=== PATIENT | male | born 1975 | race Hispanic/Latino ===

== ENCOUNTER 2018-09-24 20:47 | Emergency (ER) | payer MEDICAID, OTHER ==
[2018-09-24] MEDS ORDERED: SODIUM CHLORIDE 0.9% 1000ML 1,000 ML IV ONE (22:02)
[2018-09-24] MEDS ORDERED: LORAZEPAM 2 MG/ML 1 ML VIAL ONE (22:02)
[2018-09-24 22:03] LABS: BASOPHILS % (AUTO) 1.1 % (0.0-5.0); EOSINOPHILS % (AUTO) 1.6 % (0.0-8.0); HEMATOCRIT 42.8 % (42-54); MEAN CORPUSCULAR HEMOGLOBIN 30.2 pg (27.0-33.0); MEAN CORPUSCULAR HGB CONC 33.6 g/dL (32.0-36.0); MEAN CORPUSCULAR VOLUME 89.7 fL (79-99); MONOCYTES % (AUTO) 9.1 % (3.0-13.0); NEUTROPHILS % (AUTO) 50.2 % (40.0-77.0); NUCLEATED RED BLOOD CELLS 0.1 % (0.0-0.19); PLATELET COUNT (AUTO) 232 K/uL (130-400); RED BLOOD CELL COUNT(AUTO) 4.77 MIL/uL (4.50-6.20); RED CELL DISTRIBUTION WIDTH 12.6 % (11.0-15.5); WHITE BLOOD COUNT (AUTO) 11.9 K/uL (4.8-10.8)
[2018-09-24 22:08] LABS: CREATININE 1.2 mg/dL (0.5-1.5); POTASSIUM 3.2 mmol/L (3.5-5.1)
[2018-09-24 22:13] LABS: ALBUMIN 4.2 g/dL (3.5-5.0); BILIRUBIN,TOTAL 0.6 mg/dL (0.2-1.0)
[2018-09-24] MEDS ORDERED: IOHEXOL-350 75 ML VIAL IV ONE (22:23)
[2018-09-24] MEDS ORDERED: POTASSIUM BICARB/CIT AC 25 MEQ TABLET.EFF ONE (23:42)
[2018-09-25] MEDS ORDERED: CEFTRIAXONE SODIUM 1 GM ONE (00:13)
[2018-09-25] MEDS ORDERED: DEXAMETHASONE SOD PHOSPHATE 10MG/ML 1ML VIAL ONE (00:13)
== END 2018-09-25 00:55 | disposition home or self-care (01) ==
LOC: EDH 20:47
DX: J01.90 Acute sinusitis, unspecified (principal); J02.9 Acute pharyngitis, unspecified; I10 Essential (primary) hypertension; Z79.899 Other long term (current) drug therapy
CPT/HCPCS: 36415; 70491; 80053; 84484; 85025; 93005; 96372; 96374; 96375; 99285; J0696; J1100; J2060; J7030; Q9967

== ENCOUNTER 2020-07-27 08:47 | Emergency (ER) | payer SELFPAY ==
[2020-07-27] MEDS ORDERED: LABETALOL 20 MG/4 ML DISP.SYRIN IV ONE (09:25)
[2020-07-27] MEDS ORDERED: FAMOTIDINE/PF 20 MG/2 ML VIAL IV ONE (09:25)
[2020-07-27 09:36] LABS: BASOPHILS % (AUTO) 0.8 % (0.0-5.0); EOSINOPHILS % (AUTO) 2.9 % (0.0-8.0); HEMATOCRIT 45.5 % (42-54); LYMPHOCYTES % (AUTO) 40.9 % (21.0-51.0); MEAN CORPUSCULAR HEMOGLOBIN 31.5 pg (27.0-33.0); MEAN CORPUSCULAR HGB CONC 34.9 g/dL (32.0-36.0); MEAN CORPUSCULAR VOLUME 90.1 fL (79-99); MONOCYTES % (AUTO) 8.1 % (3.0-13.0); NEUTROPHILS % (AUTO) 46.5 % (40.0-77.0); PLATELET COUNT (AUTO) 224 K/uL (130-400); RED BLOOD CELL COUNT(AUTO) 5.05 MIL/uL (4.50-6.20); WHITE BLOOD COUNT (AUTO) 11.4 K/uL (4.8-10.8)
[2020-07-27 09:44] LABS: CREATININE 1.1 mg/dL (0.5-1.5); POTASSIUM 3.2 mmol/L (3.5-5.1)
[2020-07-27 09:48] LABS: BILIRUBIN,TOTAL 0.6 mg/dL (0.2-1.0); TOTAL PROTEIN, SERUM 7.7 g/dL (6.0-8.3)
[2020-07-27 09:59] LABS: B-TYPE NATRIURETIC PEPTIDE 9 pg/mL (0-100)
[2020-07-27] MEDS ORDERED: POTASSIUM CHLORIDE 20 MEQ ERTAB PO ONE (10:11)
[2020-07-27] MEDS ORDERED: SIMETHICONE 80 MG TAB.CHEW ONE (11:12)
[2020-07-27] MEDS ORDERED: MAG HYDROX/AL HYDROX/SIMETH ES 30 ML SUSP UDCUP ONE (11:19)
[2020-07-27] MEDS ORDERED: LIDOCAINE HCL 2% VISCOUS 15 ML UDCUP ONE (11:19)
== END 2020-07-27 12:08 | disposition home or self-care (01) ==
LOC: EDH 08:47
DX: R06.02 Shortness of breath (principal); R10.13 Epigastric pain; I10 Essential (primary) hypertension
CPT/HCPCS: 36415; 71045; 80053; 82550; 83880; 84484 ×2; 85025; 93005 ×2; 96374; 96375; 99285; J3490

== ENCOUNTER 2020-08-20 12:35 | Emergency (ER) | payer SELFPAY ==
[2020-08-20 12:59] LABS: BASOPHILS % (AUTO) 0.8 % (0.0-5.0); HEMATOCRIT 43.1 % (42-54); LYMPHOCYTES % (AUTO) 44.2 % (21.0-51.0); MEAN CORPUSCULAR HEMOGLOBIN 31.6 pg (27.0-33.0); MEAN CORPUSCULAR HGB CONC 35.7 g/dL (32.0-36.0); MEAN CORPUSCULAR VOLUME 88.3 fL (79-99); MONOCYTES % (AUTO) 6.6 % (3.0-13.0); PLATELET COUNT (AUTO) 265 K/uL (130-400); RED BLOOD CELL COUNT(AUTO) 4.88 MIL/uL (4.50-6.20); RED CELL DISTRIBUTION WIDTH 11.5 % (11.0-15.5); WHITE BLOOD COUNT (AUTO) 12.4 K/uL (4.8-10.8)
[2020-08-20 13:10] LABS: POTASSIUM 3.1 mmol/L (3.5-5.1)
[2020-08-20 13:12] LABS: INR 0.96 (0.85-1.15); PARTIAL THROMBOPLASTIN TIME 25.3 SEC (26.3-35.5); PROTHROMBIN TIME 10.4 SEC (9.6-11.6)
[2020-08-20 13:15] LABS: ALBUMIN 4.1 g/dL (3.5-5.0); BILIRUBIN,TOTAL 0.3 mg/dL (0.2-1.0); TOTAL PROTEIN, SERUM 7.6 g/dL (6.0-8.3)
[2020-08-20 13:29] LABS: B-TYPE NATRIURETIC PEPTIDE 8 pg/mL (0-100)
[2020-08-20] MEDS ORDERED: POTASSIUM CHLORIDE 20 MEQ ERTAB PO ONE (13:45)
[2020-08-20 13:47] LABS: APPEARANCE,URINE Clear (CLEAR); BILIRUBIN,URINE Negative (NEGATIVE); COLOR,URINE Yellow (YELLOW); GLUCOSE, URINE (UA) Negative (NEGATIVE); KETONES,URINE Negative (NEGATIVE); LEUKOCYTE ESTERASE ,URINE Negative (NEGATIVE); NITRATE,URINE Negative (NEGATIVE); OCCULT BLOOD,URINE Negative (NEGATIVE); PH,URINE 5.5 (5.0-8.0); PROTEIN,URINE Negative (NEGATIVE); UROBILINOGEN,URINE 0.2 mg/dL (0.2-1.0)
[2020-08-20 13:56] LABS: AMPHET/METH SCREEN,URINE NEGATIVE (NEGATIVE); BARBITURATE SCREEN, URINE NEGATIVE (NEGATIVE); BENZODIAZEPINES SCREEN,URINE NEGATIVE (NEGATIVE); CANNABINOID SCREEN,URINE NEGATIVE (NEGATIVE); COCAINE SCREEN,URINE NEGATIVE (NEGATIVE); OPIATE SCREEN,URINE NEGATIVE (NEGATIVE); PHENCYCLIDINE SCREEN,URINE NEGATIVE (NEGATIVE)
== END 2020-08-20 16:26 | disposition home or self-care (01) ==
LOC: EDH 12:35
DX: E87.6 Hypokalemia (principal); R06.00 Dyspnea, unspecified; Z20.828 Contact with and (suspected) exposure to other viral communicable diseases
CPT/HCPCS: 36415; 71045; 80053; 80305; 81003; 82550; 83880; 84484 ×2; 85025; 85378; 85610; 85730; 87426; 93005 ×2; 99285; U0003

== ENCOUNTER 2020-10-06 11:00 | Emergency (ER) | payer SELFPAY ==
[2020-10-06] MEDS ORDERED: DEXAMETHASONE SOD PHOSPHATE 10MG/ML 1ML VIAL ONE (11:14)
[2020-10-06] MEDS ORDERED: ALBUTEROL INHALER 90MCG/INH IH ONE (11:14)
[2020-10-06 11:50] LABS: BASOPHILS % (AUTO) 0.9 % (0.0-5.0); EOSINOPHILS % (AUTO) 3.9 % (0.0-8.0); HEMATOCRIT 42.7 % (42-54); LYMPHOCYTES % (AUTO) 22.9 % (21.0-51.0); MEAN CORPUSCULAR HEMOGLOBIN 30.8 pg (27.0-33.0); MEAN CORPUSCULAR HGB CONC 34.9 g/dL (32.0-36.0); MEAN CORPUSCULAR VOLUME 88.4 fL (79-99); MONOCYTES % (AUTO) 7.1 % (3.0-13.0); NEUTROPHILS % (AUTO) 64.9 % (40.0-77.0); PLATELET COUNT (AUTO) 260 K/uL (130-400); RED BLOOD CELL COUNT(AUTO) 4.83 MIL/uL (4.50-6.20); RED CELL DISTRIBUTION WIDTH 11.5 % (11.0-15.5); WHITE BLOOD COUNT (AUTO) 8.9 K/uL (4.8-10.8)
[2020-10-06 11:58] LABS: APPEARANCE,URINE Clear (CLEAR); BILIRUBIN,URINE Negative (NEGATIVE); COLOR,URINE Yellow (YELLOW); GLUCOSE, URINE (UA) Negative (NEGATIVE); KETONES,URINE Trace mg/dL (NEGATIVE); LEUKOCYTE ESTERASE ,URINE Negative (NEGATIVE); NITRATE,URINE Negative (NEGATIVE); OCCULT BLOOD,URINE Negative (NEGATIVE); PH,URINE 8.5 (5.0-8.0); PROTEIN,URINE Negative (NEGATIVE); UROBILINOGEN,URINE 0.2 mg/dL (0.2-1.0)
[2020-10-06 12:01] LABS: INR 0.99 (0.85-1.15); PARTIAL THROMBOPLASTIN TIME 28.2 SEC (26.3-35.5); PROTHROMBIN TIME 10.7 SEC (9.6-11.6)
[2020-10-06 12:07] LABS: ALBUMIN 4.1 g/dL (3.5-5.0); BILIRUBIN,TOTAL 0.8 mg/dL (0.2-1.0); CREATININE 1.1 mg/dL (0.5-1.5); POTASSIUM 3.8 mmol/L (3.5-5.1); TOTAL PROTEIN, SERUM 7.7 g/dL (6.0-8.3)
[2020-10-06 12:43] LABS: ABG BASE EXCESS 2.3 mmol/L (-2.0-3.0); ABG HCO3 25.2 mmol/L (21.0-28.0); ABG OXYGEN SATURATION 97.3 % (95.0-99.0); ABG PCO2 34 mmHg (35-48)
[2020-10-06 13:03] LABS: RBC,URINE 0-1 /HPF (0-1)
[2020-10-06 13:04] LABS: BACTERIA,URINE Few /HPF (None Seen); SQUAMOUS EPITHELIAL CELL,UR 0-2 /HPF (0-2); WBC,URINE 0-1 /HPF (0-1)
== END 2020-10-06 13:54 | disposition home or self-care (01) ==
LOC: EDH 11:00
DX: R05 Cough (principal); J41.1 Mucopurulent chronic bronchitis; I10 Essential (primary) hypertension
CPT/HCPCS: 36415; 36600; 71046; 80053; 81001; 82550; 82803; 84484; 85025; 85610; 85730; 93005; 96374; 99285; J1100

== ENCOUNTER 2021-01-24 12:18 | Emergency (ER) | payer SELFPAY ==
[2021-01-24] MEDS ORDERED: DEXAMETHASONE SOD PHOSPHATE 10MG/ML 1ML VIAL ONE (12:42)
[2021-01-24] MEDS ORDERED: FAMOTIDINE 20MG TAB 20 MG TAB ONE (12:43)
[2021-01-24] MEDS ORDERED: ASPIRIN 325 MG TABLET ONE (12:43)
[2021-01-24] MEDS ORDERED: DiphenhydrAMINE HCL 50 MG/ML VIAL ONE (12:43)
[2021-01-24] MEDS ORDERED: SODIUM CHLORIDE 0.9% 500ML 500 ML IV ONE (12:44)
[2021-01-24 12:45] LABS: BASOPHILS % (AUTO) 0.8 % (0.0-5.0); EOSINOPHILS % (AUTO) 3.1 % (0.0-8.0); HEMATOCRIT 44.6 % (42-54); LYMPHOCYTES % (AUTO) 39.5 % (21.0-51.0); MEAN CORPUSCULAR HEMOGLOBIN 30.1 pg (27.0-33.0); MEAN CORPUSCULAR HGB CONC 34.5 g/dL (32.0-36.0); MEAN CORPUSCULAR VOLUME 87.1 fL (79-99); MONOCYTES % (AUTO) 6.3 % (3.0-13.0); NEUTROPHILS % (AUTO) 49.7 % (40.0-77.0); PLATELET COUNT (AUTO) 250 K/uL (130-400); RED BLOOD CELL COUNT(AUTO) 5.12 MIL/uL (4.50-6.20); RED CELL DISTRIBUTION WIDTH 11.7 % (11.0-15.5); WHITE BLOOD COUNT (AUTO) 11.1 K/uL (4.8-10.8)
[2021-01-24 12:59] LABS: POTASSIUM 3.3 mmol/L (3.5-5.1)
[2021-01-24 13:02] LABS: INR 1.03 (0.85-1.15); PROTHROMBIN TIME 11.2 SEC (9.6-11.6)
[2021-01-24 13:04] LABS: PARTIAL THROMBOPLASTIN TIME 26.5 SEC (26.3-35.5)
[2021-01-24 13:06] LABS: ALBUMIN 4.3 g/dL (3.5-5.0); BILIRUBIN,TOTAL 0.9 mg/dL (0.2-1.0); TOTAL PROTEIN, SERUM 8.2 g/dL (6.0-8.3)
[2021-01-24 13:22] LABS: APPEARANCE,URINE Clear (CLEAR); BILIRUBIN,URINE Negative (NEGATIVE); COLOR,URINE Yellow (YELLOW); GLUCOSE, URINE (UA) Negative (NEGATIVE); KETONES,URINE Negative (NEGATIVE); LEUKOCYTE ESTERASE ,URINE Negative (NEGATIVE); NITRATE,URINE Negative (NEGATIVE); OCCULT BLOOD,URINE Negative (NEGATIVE); PROTEIN,URINE Negative (NEGATIVE); UROBILINOGEN,URINE 0.2 mg/dL (0.2-1.0)
[2021-01-24 13:29] LABS: B-TYPE NATRIURETIC PEPTIDE < 5 pg/mL (0-100)
[2021-01-24 13:30] LABS: AMPHET/METH SCREEN,URINE NEGATIVE (NEGATIVE); BARBITURATE SCREEN, URINE NEGATIVE (NEGATIVE); BENZODIAZEPINES SCREEN,URINE NEGATIVE (NEGATIVE); CANNABINOID SCREEN,URINE NEGATIVE (NEGATIVE); COCAINE SCREEN,URINE NEGATIVE (NEGATIVE); OPIATE SCREEN,URINE NEGATIVE (NEGATIVE); PHENCYCLIDINE SCREEN,URINE NEGATIVE (NEGATIVE)
== END 2021-01-24 15:17 | disposition home or self-care (01) ==
LOC: EDH 12:18
DX: F41.1 Generalized anxiety disorder (principal); I10 Essential (primary) hypertension; Z86.16 Personal history of COVID-19
CPT/HCPCS: 36415; 71045; 80053; 80305; 81003; 82550; 83605; 83880; 84484; 85025; 85610; 85730; 87040 ×2; 87880; 93005; 96361; 96374; 96375; 99285; J1100; J1200; J7040

== ENCOUNTER 2021-02-06 18:19 | Emergency (ER) | payer OTHER, SELFPAY ==
[2021-02-06] MEDS ORDERED: LIDOCAINE HCL 2% VISCOUS 15 ML UDCUP ONE (18:33)
[2021-02-06] MEDS ORDERED: MAG/ALUM/SIMETH 30 ML UDCUP ONE (18:33)
== END 2021-02-06 19:20 | disposition home or self-care (01) ==
LOC: EDH 18:19
DX: R13.10 Dysphagia, unspecified (principal); F41.1 Generalized anxiety disorder; I10 Essential (primary) hypertension; Z86.16 Personal history of COVID-19
CPT/HCPCS: 70360

== ENCOUNTER 2023-12-08 10:05 | Emergency (ER) | payer OTHER ==
[~2023-12-08] VITALS: Ht 182.9 cm; Wt 122.5 kg
[2023-12-08 10:11] VITALS: BP 165/108; PULSE 72; RESP 16; O2SAT 98
[2023-12-08] MEDS ORDERED: IBUPROFEN 800 MG TAB PO ONE (11:30)
[2023-12-08] MEDS ORDERED: CYCLOBENZAPRINE HCL 10 MG TABLET PO ONE (11:30)
[2023-12-08] MEDS ORDERED: CYCL10TA16 PO (12:47)
[2023-12-08] MEDS ORDERED: IBUP-2071 PO (12:47)
== END 2023-12-08 13:01 | disposition home or self-care (01) ==
LOC: EDH 10:05
DX: S16.1XXA Strain of muscle, fascia and tendon at neck level, initial encounter (principal); M25.561 Pain in right knee; M17.11 Unilateral primary osteoarthritis, right knee; K21.9 Gastro-esophageal reflux disease without esophagitis; I10 Essential (primary) hypertension; V89.2XXA Person injured in unspecified motor-vehicle accident, traffic, initial encounter; Y93.89 Activity, other specified; Y92.89 Other specified places as the place of occurrence of the external cause; Y99.8 Other external cause status
CPT/HCPCS: 72040; 73562

== ENCOUNTER 2024-11-09 07:32 | Emergency (ER) | payer SELFPAY ==
[~2024-11-09] VITALS: Ht 182.9 cm; Wt 127.0 kg
[~2024-11-09 07:32] MED LIST: CYCL10TA16 PO; IBUP-2071 PO
--- NOTE | 2024-11-09 07:48 | EKG ---
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
[2024-11-09 07:59] LABS: CREATININE 0.9 mg/dL (0.5-1.3); POTASSIUM 3.3 mmol/L (3.5-5.1)
[2024-11-09 08:12] LABS: BASOPHILS # (AUTO) 0.08 K/uL (0.00-0.20); BASOPHILS % (AUTO) 0.7 % (0.0-5.0); EOSINOPHILS # (AUTO) 0.02 K/uL (0.00-0.70); EOSINOPHILS % (AUTO) 0.2 % (0.0-8.0); HEMATOCRIT 44.1 % (42-54); IMMATURE GRANULOCYTE ABSOLUTE 0.05 K/uL (0-1); LYMPHOCYTES # (AUTO) 6.5 K/uL (1.0-4.8); LYMPHOCYTES % (AUTO) 52.8 % (21.0-51.0); MEAN CORPUSCULAR HEMOGLOBIN 30.9 pg (27.0-33.0); MEAN CORPUSCULAR HGB CONC 34.9 g/dL (32.0-36.0); MEAN CORPUSCULAR VOLUME 88.4 fL (79-99); MONOCYTES # (AUTO) 0.9 K/uL (0.1-1.0); MONOCYTES % (AUTO) 7.3 % (3.0-13.0); NEUTROPHILS # (AUTO) 4.7 K/uL (1.8-7.7); NEUTROPHILS % (AUTO) 38.6 % (40.0-77.0); PLATELET COUNT (AUTO) 281 K/uL (130-400); RED BLOOD CELL COUNT(AUTO) 4.99 MIL/uL (4.50-6.20); RED CELL DISTRIBUTION WIDTH 11.7 % (11.0-15.5); WHITE BLOOD COUNT (AUTO) 12.2 K/uL (4.8-10.8)
[2024-11-09] MEDS: FAMOTIDINE 20MG VIAL IV ONE (08:18)
[2024-11-09] MEDS: HYOSCYAMINE SULFATE 0.125 MG TAB.SUBL SL ONE (08:18)
[2024-11-09] MEDS: LORazepam 2 MG/ML 1 ML VIAL IVP ONE (08:18)
--- NOTE | 2024-11-09 08:23 | ERN ---
ED Note History of Present Illness Stated Complaint: SOB Chief Complaint: Shortness of Breath Time Seen by MD: 07:37 Dictation: This is a 49-year-old male with a past medical history of hypertension, anxiety, obesity who came to the ED with the complaints shortness of breath, belching since morning. He stated that he has started experiencing belching with heartburn, difficulty in breathing, anxiety since morning. He also noted having high blood pressure in the morning for which he took his home medication. He states that he drinks alcohol every day. Vitals blood pressure 190/110, pulse rate 116, respiratory rate 24. He denies headache, dizziness, nausea, vomiting, difficulty in swallowing, chest pain, palpitations, abdominal pain, constipation/diarrhea, difficulty in urination. Allergies: Coded Allergies: No Known Drug Allergies (Unverified Allergy, Unknown, 10/06/20) Home Meds Active Scripts Famotidine (Pepcid) 20 Mg Tablet, 1 TAB PO BID PRN for DYSPEPSIA for 15 Days, #30 TAB 0 Refills Prov:ROD ROCHA MD 11/09/24 Losartan Potassium (Losartan Potassium) 50 Mg Tablet, 1 TAB PO DAILY for 15 Days, #15 TAB 0 Refills Prov:ROD ROCHA MD 11/09/24 Ibuprofen (Ibuprofen) 800 Mg Tablet, 800 MG PO Q6HPRN PRN for PAIN, #20 TAB 0 Refills Prov:RADHA ZAZUETA [facility] 12/08/23 Cyclobenzaprine HCl (Flexeril) 10 Mg Tab, 10 MG PO TIDP PRN for PAIN, #12 TAB 0 Refills Prov:RADHA ZAZUETA [facility] 12/08/23 Discontinued Scripts Lorazepam (Ativan) 1 Mg Tablet, 1 TAB PO [id number] PRN for anxiety for 3 Days, #6 TAB 0 Refills Prov:ROD ROCHA MD 11/09/24 Famotidine (Pepcid) 20 Mg Tablet, 1 TAB PO BID PRN for DYSPEPSIA for 15 Days, #30 TAB 0 Refills Prov:ROD ROCHA MD 11/09/24 Past Medical History Past Medical History: Anxiety, Hypertension Surgical History: Unknown Surgical History Other: LEFT HIP Review of System Dictation CONSTITUTIONAL: No chills, no fever, no weakness, no diaphoresis, no malaise. HEAD/FACE: No signs of trauma. EENT: No eye pain, no blurred vision, no tearing, no double vision, no ear pain, no ear discharge, no nose pain, no nasal congestion, no throat pain, no throat swelling, no mouth pain. RESPIRATORY: No cough, orthopnea, shortness of breath no stridor, no wheezing. CARDIOVASCULAR: No chest pain, no edema, no palpitations, no syncope. GASTROINTESTINAL/ABDOMINAL: No abdominal pain, no constipation, no diarrhea, no nausea, no vomiting. GENITOURINARY: No abnormal discharge, no dysuria, no frequent urination, no hematuria. No complaints of pain in the genitals. MUSCULOSKELETAL: No back pain, no gout, no joint pain, no joint swelling, no muscle pain, no muscle stiffness, no neck pain. INTEGUMENTARY: No change in color, no change in hair/nails, no dryness, no lesion, no lumps, no rash. NEUROLOGICAL/PSYCH: Anxiety, not depressed, no emotional problem, no headache, no numbness, no pre-existing deficit, no history of seizures, no tremors, no weakness. HEMATOLOGIC/LYMPHATIC: Not anemic, no history of blood clots, no apparent bleeding, no bruising, glands not swollen. All Systems Negative, Except as Noted. Initial Vital Sign VS Vital Signs Date Time Temp Pulse Resp B/P (MAP) Pulse Ox O2 Delivery O2 Flow Rate FiO2 11/09/24 07:33 97.9 116 24 181/116 99 Room Air 11/09/24 07:48 0 21 Physical Exam Dictation Physical Exam Dictation VITAL SIGNS: Reviewed. GENERAL APPEARANCE: Alert, oriented x3, anxious, obese. HEAD AND FACE: Non-traumatic. EYES: PERRL, pink conjunctivas, eyelid no trauma, anterior chamber clear. EARS: Pinnas intact and no signs of trauma or erythema. Ear canals clear and no discharge. TMs no erythema. NOSE: No discharge, no bleeding. OROPHARYNX: Mouth normal, teeth no caries, tongue pink. Pharynx clear, no erythema. Tonsils no exudates, no abscesses noted. Mucous membrane moist. NECK: Supple, non-tender, no thyromegaly, no masses, no JVD, no bruits. BREAST: Deferred. CHEST: No tenderness, no crepitus, no paradoxical movement, no retractions. LUNGS: Clear, well-ventilated, symmetric, no rales, no wheezing, no rhonchi, no stridor, good breath sounds bilaterally. HEART: Tachycardia, regular rhythm, no murmur, no gallops. VASCULAR: No peripheral edema. ABDOMEN: Soft, positive bowel sounds, rigid nondistended, no guarding, nontender, no rebound, no masses, no Smith's sign, no hernias. RECTAL: Deferred. GENITAL: Deferred. NEUROLOGICAL: Normal speech, gross motor function intact, gross sensory function intact. MUSCULOSKELETAL: Neck nontender, full range of motion, back nontender, full ra nge of motion. EXTREMITIES: Nontender, full range of motion. SKIN: Color pink, dry, no turgor, no rash, no lacerations, no abrasions, no contusions. LYMPHATICS: Deferred. Results (Laboratory/Radiology) Laboratory/Radiology Laboratory Tests Test 11/09/24 07:41 11/09/24 08:07 11/09/24 08:20 White Blood Count 12.2 K/uL (4.8-10.8) H Red Blood Count 4.99 MIL/uL (4.50-6.20) Hemoglobin 15.4 g/dL (14.0-18.0) Hematocrit 44.1 % (42-54) Mean Corpuscular Volume 88.4 fL (79-99) Mean Corpuscular Hemoglobin 30.9 pg (27.0-33.0) Mean Corpuscular Hemoglobin Concent 34.9 g/dL (32.0-36.0) Red Cell Distribution Width 11.7 % (11.0-15.5) Platelet Count 281 K/uL (130-400) Mean Platelet Volume 11.5 fL (7.5-10.5) H Immature Granulocyte % (Auto) 0.4 % (0-1) Neutrophils (%) (Auto) 38.6 % (40.0-77.0) L Lymphocytes (%) (Auto) 52.8 % (21.0-51.0) H Monocytes (%) (Auto) 7.3 % (3.0-13.0) Eosinophils (%) (Auto) 0.2 % (0.0-8.0) Basophils (%) (Auto) 0.7 % (0.0-5.0) Neutrophils # (Auto) 4.7 K/uL (1.8-7.7) Lymphocytes # (Auto) 6.5 K/uL (1.0-4.8) H Monocytes # (Auto) 0.9 K/uL (0.1-1.0) Eosinophils # (Auto) 0.02 K/uL (0.00-0.70) Basophils # (Auto) 0.08 K/uL (0.00-0.20) Absolute Immature Granulocyte (auto 0.05 K/uL (0-1) Segmented Neutrophils % 38 % (40-70) L Band Neutrophils % 2 % (0-2) Lymphocytes % (Manual) 21 % (22-44) L Monocytes % (Manual) 4 % (2-9) Eosinophils % (Manual) 2 % (1-6) Basophils % (Manual) 1 % (0-2) Nucleated Red Blood Cells 0.0 % (0.0-0.19) Differential Comment MANUAL DIFFERENTIAL Reactive Lymphocytes 32 % (0-0) H White Cell Morphology Comment Platelet Morphology Comment ADEQUATE Red Blood Cell Morphology NORMAL Sodium Level 138 mmol/L (136-145) Potassium Level 3.3 mmol/L (3.5-5.1) L Chloride Level 103 mmol/L (101-111) Carbon Dioxide Level 28 mmol/L (21-32) Blood Urea Nitrogen 10 mg/dL (7-18) Creatinine 0.9 mg/dL (0.5-1.3) Glomerular Filtration Rate Calc 104 mL/min (>90) Random Glucose 143 mg/dL (70-105) H Total Calcium 8.5 mg/dL (8.5-10.1) Total Bilirubin 0.6 mg/dL (0.2-1.0) Direct Bilirubin 0.1 mg/dL (0.0-0.3) Aspartate Amino Transf (AST/SGOT) 33 U/L (10-37) Alanine Aminotransferase (ALT/SGPT) 60 U/L (12-78) Alkaline Phosphatase 131 U/L (50-136) Total Creatine Kinase 275 U/L (21-232) #H B-Type Natriuretic Peptide 12 pg/mL (0-100) Total Protein 7.9 g/dL (6.0-8.3) Albumin 3.8 g/dL (3.5-5.0) Lipase 73 U/L (16-77) Troponin I < 0.05 ng/mL (0.00-0.05) Urine Color LIGHT-YELLOW (YELLOW) Urine Appearance CLEAR (CLEAR) Urine pH 6.5 (5.0-8.0) Urine Specific [place] 1.014 (1.001-1.031) Urine Protein NEGATIVE mg/dL (NEGATIVE) Urine Glucose (UA) NEGATIVE mg/dL (NEGATIVE) Urine Ketones 5 mg/dL (NEGATIVE) H Urine Occult Blood NEGATIVE (NEGATIVE) Urine Nitrate NEGATIVE (NEGATIVE) Urine Bilirubin NEGATIVE mg/dL (NEGATIVE) Urine Urobilinogen 0.2 mg/dL (0.2-1.0) Urine Leukocyte Esterase NEGATIVE [place]/uL Urine RBC 0-1 /HPF (0-1) Urine WBC 0-1 /HPF (0-1) Urine Bacteria None /HPF (None Seen) Urine Opiates Screen NEGATIVE (NEGATIVE) Urine Barbiturates Screen NEGATIVE (NEGATIVE) Urine Phencyclidine Screen NEGATIVE (NEGATIVE) Urine Amphetamines Screen NEGATIVE (NEGATIVE) Urine Benzodiazepines Screen NEGATIVE (NEGATIVE) Urine Cocaine Screen NEGATIVE (NEGATIVE) Urine Marijuana (THC) Screen NEGATIVE (NEGATIVE) EKG Comment: PROCEDURE: EKG - 12 LEAD EKG TRACING- TECHNICAL [facility] Test Date: 2024-11-09 Test Time: 07:43:21 Pat Name: DIGNA LEON Department: [facility] Room: Gender: Male 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 The heart is normal in size. The bony and soft tissue structures of the chest are unremarkable. Impression: Clear lungs. ED Course ED Course Orders Procedure Category Date Status Time Vital Signs Per CPOE 11/09/24 Transmitted Routine 07:42 B-Type Natriuretic LAB 11/09/24 In Process Peptide 07:42 Chest 1vw RAD 11/09/24 Resulted 07:42 12 Lead Ekg Tracing- EKG 11/09/24 Complete Technical 07:42 Oxygen By Nc/Pulse Ox CPOE 11/09/24 Transmitted 07:42 Maintain Iv CPOE 11/09/24 Transmitted 07:42 Iv Insertion CPOE 11/09/24 Transmitted 07:42 Cardiac Monitoring CPOE 11/09/24 Transmitted 07:42 Pulse Oximetry With CPOE 11/09/24 Transmitted Vs And Prn 07:42 Cbc With Differential LAB 11/09/24 In Process 07:42 Activity: Br W/Brp CPOE 11/09/24 Transmitted With Assist 07:42 Creatine Kinase, Total LAB 11/09/24 Complete 07:42 Urinalysis Profile LAB 11/09/24 Complete 07:42 Troponin Poc Order LAB 11/09/24 Complete Only 07:42 Bedside Troponin-I LAB.ER 11/09/24 Complete (Poc) 07:42 Basic Metabolic Panel LAB 11/09/24 Complete 07:42 Hepatic Function Panel LAB 11/09/24 Complete 07:50 Drug Screen Urine LAB 11/09/24 Complete 07:53 Famotidine 20mg Vial PHA 11/09/24 Complete (Pepcid 20mg Vial) 08:30 Lorazepam 2 Mg PHA 11/09/24 Complete (Ativan) 08:30 Hyoscyamine Sulfate PHA 11/09/24 Complete (Levsin) 08:30 Lipase LAB 11/09/24 Complete 08:12 Manual Differential LAB 11/09/24 In Process 07:41 Pathology Smear Review LAB 11/09/24 In Process 07:41 Potassium Bicarb/Cit PHA 11/09/24 Complete Ac 25meq (K-Lyte Ta 10:00 Labetalol 20mg Syg PHA 11/09/24 Complete (Trandate 20mg Syg) 10:00 Lidocaine Hcl 2% PHA 11/09/24 Complete Viscous (Lidocaine Hcl 10:00 Mag/Alum/Simeth 30ml PHA 11/09/24 Complete (Maalox Plus 30ml) 10:00 Current Medications Medications (Trade) Dose Ordered Sig/Conrad Route PRN Reason Start Time Stop Time Status Last Admin Dose Admin Al Hydroxide/Mg Hydroxide (MAALox PLUS 30ML) 30 ml ONCE ONCE PO 11/09/24 10:00 11/09/24 10:01 DC 11/09/24 10:10 Famotidine (Pepcid 20mg Vial) 20 mg ONCE ONCE IV 11/09/24 08:30 11/09/24 08:31 DC 11/09/24 08:18 Hyoscyamine Sulfate (Levsin) 0.125 mg ONCE ONCE SL 11/09/24 08:30 11/09/24 08:31 DC 11/09/24 08:18 Labetalol HCl (TRANdate 20MG SYG) 10 mg ONCE ONCE IV 11/09/24 10:00 11/09/24 10:01 DC 11/09/24 10:13 Lidocaine HCl (Lidocaine HCl 2% Viscous) 10 ml ONCE ONCE PO 11/09/24 10:00 11/09/24 10:01 DC 11/09/24 10:10 Lorazepam (AtiVAN) 1 mg ONCE ONCE IVP 11/09/24 08:30 11/09/24 08:31 DC 11/09/24 08:18 Potassium Bicarbonate (K-Lyte Tablet Eff 25 Meq Tablet.eff) 25 meq ONCE ONCE PO 11/09/24 10:00 11/09/24 10:01 DC 11/09/24 10:10 Vital Signs Date Time Temp Pulse Resp B/P (MAP) Pulse Ox O2 Delivery O2 Flow Rate FiO2 11/09/24 12:19 98.8 87 19 158/101 99 Room Air* 0 11/09/24 10:14 98.8 88 22 171/108 99 Room Air* 0 21 11/09/24 10:13 88 171/108 11/09/24 07:48 98.8 118 22 190/110 98 Room Air* 0 11/09/24 07:33 97.9 116 24 181/116 99 Room Air Medical Decision Making [facility] MDM Potential differential diagnoses include: Myocardial infraction Pulmonary embolism GERD Anxiety Hypertensive urgency Assessment: We will order CBC was done in order to to rule any anemia, infections and to evaluate the overall health of the patient. CMP was ordered in order to assess various electrolytes, kidney function, liver function ,protein levels and blood glucose levels, I will re-evaluate the patient after treatment and diagnostic exams have returned to determine whether they require further testing, can be safely di scharged home, or need admission for further treatment and evaluation. Given the social determinants of health affecting care, including literacy, access to medical care, prescription drug management, and [id number] drugs, I will ensure that treatment plans are tailored accordingly. Revaluation : Patient is awake alert and oriented. Clinically stable. His systolic blood pressure has improved from 180s to 160s. EKG resulted in sinus tachycardia. Chest x-ray resulted in no acute findings. Labs show low potassium 3.3, T CK 275, WBC 12.2. Urinalysis and urine drug screen results came back negative. Troponin, lipase, BNP levels are normal. Belching, shortness of breath, abdominal discomfort symptoms have significantly improved. He states that he feels better. Disposition: Patient is being discharged home oral prescription of losartan 50 mg p.o. daily for hypertension for 15 days, famotidine 20 mg b.i.d. p.r.n. for dyspepsia for 15 days. Advised to Follow up with primary care physician within 2-3 days Take losartan 50 mg p.o. blood pressure medication daily as directed Take Pepcid 20 mg p.o. p.r.n. for dyspepsia as directed Avoid spicy, fatty or fried foods Limit caffeine, alcohol and caffeinated drinks Limit sodium intake Maintain a heart healthy diet rich in fruits, vegetables whole grains and lean protein. Critical Care Note Critical Time: 30 minutes DX & DISP Disposition: Discharge Departure Impression: Primary Impression: Dyspepsia Additional Impressions: Anxiety, Hypertensive urgency Critical Time: 30 minutes Condition: Stable Scripts Famotidine (Pepcid) 20 Mg Tablet 1 TAB PO BID PRN for DYSPEPSIA for 15 Days, #30 TAB 0 Refills Prov: ROD ROCHA MD 11/09/24 Losartan Potassium (Losartan Potassium) 50 Mg Tablet 1 TAB PO DAILY for 15 Days, #15 TAB 0 Refills Prov: ROD ROCHA MD 11/09/24 Referrals: SOLO KNIGHT MD (PCP) I visited this patient shortly after he arrived and again several times during his stay. I have reviewed all of his results and vital signs. Time reviewed: 7:43 a.m. EKG number; 1 Rate and rhythm: Sinus tachycardia at 110 beats per minute [place]:normal Morphology:Normal [place] interval: normal QT interval: normal ST/[place]: normal Impression: Sinus tachycardia without STEMI or ectopy Comparison EKG: none EKG INTERPRETATION by Dr. Natalia Vazquez I concur with the management plan as it was carried out in the emergency department in I concur with discharge. The patient is currently taking only a small dose of amlodipine. He is not taking anything for anxiety currently. There was no evidence of significant end-organ damage related to his blood pressure and he feels much better after a dose of Ativan. Plan is to discharge him with a an additional prescription of the losartan and have him follow up with his primary care physician for chronic anxiety management He is stable for discharge ROD ROCHA MD Nov 09, 2024 08:23 NATALIA VAZQUEZ MD Nov 09, 2024 14:18
[2024-11-09 08:41] LABS: B-TYPE NATRIURETIC PEPTIDE 12 pg/mL (0-100)
[2024-11-09 08:42] LABS: ALBUMIN 3.8 g/dL (3.5-5.0); BILIRUBIN,DIRECT 0.1 mg/dL (0.0-0.3); BILIRUBIN,TOTAL 0.6 mg/dL (0.2-1.0); TOTAL PROTEIN, SERUM 7.9 g/dL (6.0-8.3)
--- NOTE | 2024-11-09 08:42 | HMCIMG ---
Exam Type: CHEST 1VW Clinical Information: CHEST PAIN Comparison: None Findings: The lungs are clear of infiltrates. The heart is normal in size. The bony and soft tissue structures of the chest are unremarkable. Impression: Clear lungs.
[2024-11-09 08:45] LABS: AMPHET/METH SCREEN,URINE NEGATIVE (NEGATIVE); BARBITURATE SCREEN, URINE NEGATIVE (NEGATIVE); BENZODIAZEPINES SCREEN,URINE NEGATIVE (NEGATIVE); CANNABINOID SCREEN,URINE NEGATIVE (NEGATIVE); COCAINE SCREEN,URINE NEGATIVE (NEGATIVE); OPIATE SCREEN,URINE NEGATIVE (NEGATIVE); PHENCYCLIDINE SCREEN,URINE NEGATIVE (NEGATIVE)
[2024-11-09 08:48] LABS: APPEARANCE,URINE CLEAR (CLEAR); BILIRUBIN,URINE NEGATIVE (NEGATIVE); COLOR,URINE LIGHT-YELLOW (YELLOW); GLUCOSE, URINE (UA) NEGATIVE (NEGATIVE); KETONES,URINE 5 mg/dL (NEGATIVE); LEUKOCYTE ESTERASE ,URINE NEGATIVE Leu/uL (NEGATIVE); NITRATE,URINE NEGATIVE (NEGATIVE); OCCULT BLOOD,URINE NEGATIVE (NEGATIVE); PH,URINE 6.5 (5.0-8.0); PROTEIN,URINE NEGATIVE (NEGATIVE); UROBILINOGEN,URINE 0.2 mg/dL (0.2-1.0)
[2024-11-09 09:04] LABS: ADD UA MICROSCOPIC YES
[2024-11-09 09:18] LABS: RBC,URINE 0-1 /HPF (0-1); WBC,URINE 0-1 /HPF (0-1)
[2024-11-09 09:23] LABS: BAND NEUTROPHILS % (MANUAL) 2 % (0-2); BASOPHILS % (MANUAL) 1 % (0-2); EOSINOPHILS % (MANUAL) 2 % (1-6); LYMPHOCYTES % (MANUAL) 21 % (22-44); MAN.DIFF COMMENT-IMPRESSION MANUAL DIFFERENTIAL; MONOCYTES % (MANUAL) 4 % (2-9); PLATELET MORPHOLOGY COMMENT ADEQUATE; REACTIVE LYMPHOCYTES 32 % (0-0); SEGMENTED NEUTROPHILS % 38 % (40-70); TOTAL CELLS COUNTED 100
[2024-11-09] MEDS: PoTASSium BIcarbonate/CIT AC 25 MEQ TABLET.EFF PO ONE (10:10)
[2024-11-09] MEDS: MAG/ALUM/SIMETH 30 ML UDCUP PO ONE (10:10)
[2024-11-09] MEDS: LIDOCAINE HCL 2% VISCOUS 15 ML UDCUP PO ONE (10:10)
[2024-11-09] MEDS: LAbetaLOL 20MG SYG IV ONE (10:13)
[2024-11-09] MEDS ORDERED: LOSA50TA64 PO (11:31)
[2024-11-09] MEDS ORDERED: FAMO-136 PO (11:43)
[2024-11-09] MEDS ORDERED: LORA-192 PO (12:06)
[2024-11-09 12:19] VITALS: BP 158/101; PULSE 87; RESP 19; TEMP 98.7; O2SAT 99
== END 2024-11-09 12:36 | disposition home or self-care (01) ==
LOC: EDH 07:32
DX: R10.13 Epigastric pain (principal); F41.9 Anxiety disorder, unspecified; I16.0 Hypertensive urgency; I10 Essential (primary) hypertension; Z79.899 Other long term (current) drug therapy
CPT/HCPCS: 99285; 96374; 71045; 96375 ×2; 82550; 80076; 84484; 80048; 83880; 80305; 83690; 85025; 36415; 93005; 81001; J3490; J2060

== ENCOUNTER 2025-03-18 18:03 | Emergency (ER) | payer SELFPAY ==
[~2025-03-18] VITALS: Ht 182.9 cm; Wt 129.3 kg
[~2025-03-18 18:03] MED LIST changes: +FAMO-136 PO; +LOSA50TA64 PO
--- NOTE | 2025-03-18 18:10 | NUR ---
NOTIFIED EPI HILL B/P 182/104
--- NOTE | 2025-03-18 18:24 | EKG ---
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
[2025-03-18 18:29] LABS: BASOPHILS # (AUTO) 0.06 K/uL (0.00-0.20); BASOPHILS % (AUTO) 0.5 % (0.0-5.0); EOSINOPHILS # (AUTO) 0.22 K/uL (0.00-0.70); HEMATOCRIT 43.6 % (42-54); IMMATURE GRANULOCYTE ABSOLUTE 0.04 K/uL (0-1); LYMPHOCYTES # (AUTO) 4.9 K/uL (1.0-4.8); LYMPHOCYTES % (AUTO) 44.4 % (21.0-51.0); MEAN CORPUSCULAR HEMOGLOBIN 30.4 pg (27.0-33.0); MEAN CORPUSCULAR HGB CONC 34.4 g/dL (32.0-36.0); MEAN CORPUSCULAR VOLUME 88.3 fL (79-99); MONOCYTES # (AUTO) 0.7 K/uL (0.1-1.0); MONOCYTES % (AUTO) 6.6 % (3.0-13.0); NEUTROPHILS # (AUTO) 5.1 K/uL (1.8-7.7); NEUTROPHILS % (AUTO) 46.1 % (40.0-77.0); PLATELET COUNT (AUTO) 236 K/uL (130-400); RED BLOOD CELL COUNT(AUTO) 4.94 MIL/uL (4.50-6.20); RED CELL DISTRIBUTION WIDTH 12.4 % (11.0-15.5)
[2025-03-18 18:37] LABS: CREATININE 1.1 mg/dL (0.5-1.3); POTASSIUM 3.6 mmol/L (3.5-5.1)
[2025-03-18] MEDS: IpraTROPium/alBUTERol SULFATE 3 ML SOLUTION IH SCH (18:41)
[2025-03-18 18:46] VITALS: PULSE 92; RESP 18
[2025-03-18 18:49] VITALS: PULSE 92; RESP 18; O2SAT 97
--- NOTE | 2025-03-18 18:50 | ERN ---
ED Note History of Present Illness Stated Complaint: CHEST CONGESTION Chief Complaint: Congestion Time Seen by MD: 18:06 Time Seen by Midlevel: 18:06 Dictation: Patient is a 49-year-old male with a history of hypertension who presents to the emergency department with complaints of shortness of breath, nonproductive cough, nasal congestion onset four days ago. Patient reports that three weeks ago he was diagnosed with bronchitis and giving a treatment. But reports symptoms returned. reports chest pain only with coughing. Denies any fevers, nausea or vomiting. Allergies: Coded Allergies: No Known Drug Allergies (Unverified Allergy, Unknown, 10/06/20) Home Meds Active Scripts Methylprednisolone (Medrol) 4 Mg Tab.ds.pk, 4 MG PO AD for 6 Days, #1 PACK Day 1: Take 2 tablets before breakfast,1 tablet after lunch and supper, and 2 tablets at bedtime. Day 2: Take1 tablet before breakfast,1 tablet after lunch,1 tablet after supper, and 2 tablets at bedtime. Day 3: Take 1 tablet before breakfast, 1 tablet after lunch, 1 tablet after supper, and 1 tablet at bedtime. Day 4: Take 1 tablet before breakfast, 1 tablet after lunch, and 1 tablet at bedtime. Day 5: Take1 tablet before breakfast and 1 tablet at bedtime. Day 6: Take 1 tablet before breakfast. Prov:EPI YOUNGBLOOD 03/18/25 Albuterol Sulfate (Ventolin Hfa/Proventil Hfa/Proair Hfa) 90 Mcg Puff, 1-2 PUFF IH Q4H PRN for SHORTNESS OF BREATH for 5 Days, #1 INH 0 Refills PHARMACY TO DISPENSE 1 INHALER FOR USE Prov:EPI YOUNGBLOOD 03/18/25 Famotidine (Pepcid) 20 Mg Tablet, 1 TAB PO BID PRN for DYSPEPSIA for 15 Days, #30 TAB 0 Refills Prov:ROD ROCHA MD 11/09/24 Losartan Potassium (Losartan Potassium) 50 Mg Tablet, 1 TAB PO DAILY for 15 Days, #15 TAB 0 Refills Prov:ROD ROCHA MD 11/09/24 Ibuprofen (Ibuprofen) 800 Mg Tablet, 800 MG PO Q6HPRN PRN for PAIN, #20 TAB 0 Refills Prov:RADHA ZAZUETA 12/08/23 Cyclobenzaprine HCl (Flexeril) 10 Mg Tab, 10 MG PO TIDP PRN for PAIN, #12 TAB 0 Refills Prov:RADHA ZAZUETA [employer] 12/08/23 Past Medical History Past Medical History: Anxiety, Hypertension Surgical History: Unknown Surgical History Other: LEFT HIP RN Note Reviewed/Agreed w/PFSH: Yes Review of System Dictation Constitutional: Negative for fever,chills, and weight loss Eyes: Negative for injury, pain,redness, and discharge ENT: Negative for injury,pain or swelling Cardiovascular: Negative for palpitations, and edema positive for chest pain Respiratory: Negative for wheezing, positive for shortness of breath, cough Abdomen/GI: Negative for abdominal pain, nausea, vomiting, diarrhea, and constipation Back: Negative for injury and pain : Negative for injury, bleeding and discharge MS/Extremity: Negative for injury and deformity Skin: Negative for rash, and discoloration Neuro: Negative for headache, weakness, numbness, tingling, and seizure Psych: Negative for suicide ideation, homicidal ideation, and hallucinations Initial Vital Sign VS Vital Signs Date Time Temp Pulse Resp B/P (MAP) Pulse Ox O2 Delivery O2 Flow Rate FiO2 03/18/25 18:05 98.4 92 24 182/104 98 Room Air 0 03/18/25 18:49 21 Physical Exam Dictation Vital Signs reviewed General Appearance: Alert, oriented x 3, no acute distress, well developed, nourished. Head and Face: non-traumatic. Eyes: PERRL, pink conjunctivas, eyelid no trauma, anterior chamber with arcus senilis. Ears: Pinnas intact and no signs of trauma or erythema ear canals clear and no discharge TM no erythema Nose: No discharge, no bleeding. Oropharynx: Mouth normal, tongue pink. pharynx clear,no erythema, tonsils no exudates, no abscesses noted, mucous membrane moist Neck: Supple, non-tender, no thyromegaly, no masses, no JVD, no bruits Breast:Deferred Chest:No tenderness, no crepitus, no paradoxical movement, no retractions Lungs:Clear, well-ventilated, symmetric, no rales, no wheezing, no rhonchi, no stridor, good breath sounds bilaterally Heart: Regular rate, regular rhythm, no murmur, no gallops Vascular: no peripheral edema, Abdomen: Soft, positive bowel sounds, nondistended, no guarding, nontender, no rebound, no masses no hepatomegaly, no splenomegaly, no Smith's sign, no hernias. Rectal: Deferred Genital: Deferred Neurological: Normal speech, motor function intact, sensory function intact Musculoskeletal: Neck nontender, full range of motion, back nontender, full range of motion, Extremities: nontender, full range of motion Skin: Color pink, dry, no turgor, no rash, no lacerations, no abrasions, no contusions. Lymphatic: Deferred Results (Laboratory/Radiology) Laboratory/Radiology Laboratory Tests Test 03/18/25 18:21 03/18/25 18:42 White Blood Count 11.0 K/uL (4.8-10.8) H Red Blood Count 4.94 MIL/uL (4.50-6.20) Hemoglobin 15.0 g/dL (14.0-18.0) Hematocrit 43.6 % (42-54) Mean Corpuscular Volume 88.3 fL (79-99) Mean Corpuscular Hemoglobin 30.4 pg (27.0-33.0) Mean Corpuscular Hemoglobin Concent 34.4 g/dL (32.0-36.0) Red Cell Distribution Width 12.4 % (11.0-15.5) Platelet Count 236 K/uL (130-400) Mean Platelet Volume 11.2 fL (7.5-10.5) H Immature Granulocyte % (Auto) 0.4 % (0-1) Neutrophils (%) (Auto) 46.1 % (40.0-77.0) Lymphocytes (%) (Auto) 44.4 % (21.0-51.0) Monocytes (%) (Auto) 6.6 % (3.0-13.0) Eosinophils (%) (Auto) 2.0 % (0.0-8.0) Basophils (%) (Auto) 0.5 % (0.0-5.0) Neutrophils # (Auto) 5.1 K/uL (1.8-7.7) Lymphocytes # (Auto) 4.9 K/uL (1.0-4.8) H Monocytes # (Auto) 0.7 K/uL (0.1-1.0) Eosinophils # (Auto) 0.22 K/uL (0.00-0.70) Basophils # (Auto) 0.06 K/uL (0.00-0.20) Absolute Immature Granulocyte (auto 0.04 K/uL (0-1) Nucleated Red Blood Cells 0.0 % (0.0-0.19) Sodium Level 143 mmol/L (136-145) Potassium Level 3.6 mmol/L (3.5-5.1) Chloride Level 105 mmol/L (101-111) Carbon Dioxide Level 31 mmol/L (21-32) Blood Urea Nitrogen 15 mg/dL (7-18) Creatinine 1.1 mg/dL (0.5-1.3) Glomerular Filtration Rate Calc 82 mL/min (>90) Random Glucose 99 mg/dL (70-105) Total Calcium 8.5 mg/dL (8.5-10.1) Total Creatine Kinase 345 U/L (21-232) #H Troponin I High Sensitivity 7.0 ng/L (4-75) B-Type Natriuretic Peptide 7 pg/mL (0-100) Influenza Type A Antigen Negative For Type A Influenza Type B Antigen Negative For Type B SARS-CoV-2 Antigen (Rapid) PRESUMPTIVE NEGATIVE Group A Streptococcus Rapid negative (NEGATIVE) REASON: sob ORDERING PHYSICIAN: EPI YOUNGBLOOD [employer] W[employer]HOUSE[employer] PROCEDURE: CXR1VW - CHEST 1VW CHEST 1VW HISTORY: Shortness of breath COMPARISON: 11/09/2024 FINDINGS: A frontal projection of the chest was obtained. No acute pulmonary infiltrates is seen. The heart is normal in size. Prominent interstitial markings are seen. No evidence of aortic calcification is seen. IMPRESSION: 1. No acute pulmonary infiltrate is seen. Labs Reviewed?: Yes EKG: (+) rhythm (Sinus rhythm) EKG Comment: Date:03/18/2025 Time:1821 Ventricular rate:83 ID interval:169 QRS duration:102 QT/QTc:366 EKG interpretation: Sinus rhythm Reviewed by ED Attending no STEMI ED Course ED Course Orders Procedure Category Date Status Time Influenza Type A & B, LAB 03/18/25 Complete Rapid 18:09 Rapid (Group A Strep) LAB 03/18/25 Complete 18:09 Covid19 (Sars Antigen LAB 03/18/25 Complete Rapid) 18:09 Cbc With Differential LAB 03/18/25 Complete 18:12 B-Type Natriuretic LAB 03/18/25 Complete Peptide 18:12 Chest 1vw RAD 03/18/25 Resulted 18:12 12 Lead Ekg Tracing- EKG 03/18/25 Complete Technical 18:12 Basic Metabolic Panel LAB 03/18/25 Complete 18:12 Methylprednisolone PHA 03/18/25 In Process Succ 125mg (Solu-Medr 18:30 Ipratropium/Albuterol PHA 03/18/25 In Process Neb (Duoneb) 18:30 Cardiac Panel LAB 03/18/25 Complete 18:12 Current Medications Medications (Trade) Dose Ordered Sig/Conrad Route PRN Reason Start Time Stop Time Status Last Admin Dose Admin Albuterol (DUOneb) 1 UDVIAL ONCE IH 03/18/25 18:30 03/18/25 22:30 03/18/25 18:41 Methylprednisolone Sodium Succinate (Solu-medROL 125MG) 125 mg ONCE IVP 03/18/25 18:30 03/18/25 22:30 03/18/25 19:31 Vital Signs Date Time Temp Pulse Resp B/P (MAP) Pulse Ox O2 Delivery O2 Flow Rate FiO2 03/18/25 18:49 92 18 N/A Room Air 21 03/18/25 18:46 92 18 03/18/25 18:05 98.4 92 24 182/104 98 Room Air 0 Medical Decision Making MDM Patient is a 49-year-old male with a history of hypertension who presents to the emergency department with complaints of shortness of breath, nonproductive cough, nasal congestion onset four days ago. Patient reports that three weeks ago he was diagnosed with bronchitis and giving a possible antibiotics treatment. But reports symptoms returned. reports chest pain only with coughing. Denies any fevers, nausea or vomiting. CBC showed mild leukocytosis, no anemia, chemistry showed no electrolyte imbalance, GFR of 82, slightly elevated CK lip, negative troponin, negative BNP, serology negative. X-ray showed no acute infiltrates. Patient in no acute distress. O2 saturation at 98% on room air. Patient received steroids and breathing treatment in ER. We will be discharged to follow up with PCP. Differential diagnosis: Bronchitis, ACS, pneumonia, pneumothorax, CHF Need for hospitalization: Patient does not meet criteria for hospitalization. There are no social concerns with this patient. DX & DISP Disposition: Discharge Departure Impression: Primary Impression: Bronchitis Condition: Stable Scripts Albuterol Sulfate (Albuterol Sulfate) 2.5 Mg/0.5 Ml Vial.neb 2.5 MG IH Q6H for wheezing/sob, #20 INH 0 Refills Prov: EPI YOUNGBLOOD 03/18/25 Methylprednisolone (Medrol) 4 Mg Tab.ds.pk 4 MG PO AD for 6 Days, #1 PACK Day 1: Take 2 tablets before breakfast,1 tablet after lunch and supper, and 2 tablets at bedtime. Day 2: Take1 tablet before breakfast,1 tablet after lunch,1 tablet after supper, and 2 tablets at bedtime. Day 3: Take 1 tablet before breakfast, 1 tablet after lunch, 1 tablet after supper, and 1 tablet at bedtime. Day 4: Take 1 tablet before breakfast, 1 tablet after lunch, and 1 tablet at bedtime. Day 5: Take1 tablet before breakfast and 1 tablet at bedtime. Day 6: Take 1 tablet before breakfast. Prov: EPI YOUNGBLOOD 03/18/25 Additional Instructions: Please follow up with your primary doctor in 1-2 days. If symptoms worsen please return to ER. FOLLOW-UP WITH PRIMARY CARE PROVIDER IN 1 TO 2 DAYS. TAKE MEDICATIONS DIRECTED HERE IN THE EMERGENCY ROOM. OKAY TO CONTINUE HOME MEDICATIONS UNLESS OTHERWISE DISCUSSED DURING YOUR VISIT IN THE EMERGENCY ROOM TODAY. RETURN TO YOUR NEAREST EMERGENCY ROOM IF SYMPTOMS WORSEN OR IF THERE IS NO IMPROVEMENT. CALL 911 IF YOU NEED IMMEDIATE ASSISTANCE. TAKE TYLENOL OR MOTRIN [id number] NEEDED AND IF NO CONTRAINDICATIONS ARE PRESENT. INCREASE ORAL HYDRATION. A WOUND CULTURE OR URINE CULTURE WAS ORDERED HERE IN THE EMERGENCY ROOM DEPARTMENT PLEASE FOLLOW-UP WITH PRIMARY CARE PROVIDER AND ADVISE THEM TO GET REPEAT PORTS FROM OUR FACILITY. IF YOU HAD ANY ANGIE WRAP/SPLINTS THAT WERE APPLIED HERE, PLEASE DO NOT REMOVE THEM UNTIL YOU SEE YOUR PRIMARY CARE OR SPECIALTY. Referrals: MERLYN TANNER DO (PCP) Time of Disposition: 19:28 I have reviewed the case, and I agree with, Diagnosis and Plan EPI YOUNGBLOOD March 18, 2025 18:50
[2025-03-18 19:10] LABS: RAPID GROUP A STREP negative (NEGATIVE)
[2025-03-18 19:18] LABS: B-TYPE NATRIURETIC PEPTIDE 7 pg/mL (0-100)
[2025-03-18 19:21] LABS: COVID19 (SARS ANTIGEN RAPID) PRESUMPTIVE NEGATIVE (NEGATIVE)
[2025-03-18 19:22] LABS: INFLUENZA TYPE A Negative For Type A (NEGATIVE); INFLUENZA TYPE B Negative For Type B (NEGATIVE)
--- NOTE | 2025-03-18 19:22 | HMCIMG ---
CHEST 1VW HISTORY: Shortness of breath COMPARISON: 11/09/2024 FINDINGS: A frontal projection of the chest was obtained. No acute pulmonary infiltrates is seen. The heart is normal in size. Prominent interstitial markings are seen. No evidence of aortic calcification is seen. IMPRESSION: 1. No acute pulmonary infiltrate is seen.
[2025-03-18] MEDS ORDERED: METH4TAB3 PO (19:29)
[2025-03-18] MEDS ORDERED: ALBUHFA IH (19:29)
[2025-03-18] MEDS: Solu-medROL 125MG VIAL IVP SCH (19:31)
[2025-03-18] MEDS ORDERED: AUD IH (19:34)
[2025-03-18 19:42] VITALS: BP 167/91; PULSE 88; RESP 22; TEMP 98.5; O2SAT 98
== END 2025-03-18 19:46 | disposition home or self-care (01) ==
LOC: EDH 18:03
DX: J40 Bronchitis, not specified as acute or chronic (principal); I10 Essential (primary) hypertension; Z20.822 Contact with and (suspected) exposure to COVID-19; Z79.899 Other long term (current) drug therapy
CPT/HCPCS: 99285; 96374; 71045; 87426; 82550; 84484; 80048; 83880; 85025; 87880; 87804 ×2; 36415; 93005; 94640; J2919

== ENCOUNTER 2025-08-04 00:46 | Emergency (ER) | payer SELFPAY ==
[~2025-08-04] VITALS: Ht 182.9 cm; Wt 129.3 kg
[~2025-08-04 00:46] MED LIST changes: +AUD IH; +METH4TAB3 PO
[2025-08-04 01:17] LABS: IMMATURE GRANULOCYTE ABSOLUTE 0.04 K/uL (0-1); NUCLEATED RED BLOOD CELLS 0.0 % (0.0-0.19); PLATELET COUNT (AUTO) 213 K/uL (130-400); RED BLOOD CELL COUNT(AUTO) 4.94 MIL/uL (4.50-6.20); RED CELL DISTRIBUTION WIDTH 12.2 % (11.0-15.5); WHITE BLOOD COUNT (AUTO) 9.9 K/uL (4.8-10.8)
[2025-08-04] MEDS: FAMOTIDINE 20MG TAB PO ONE (01:25)
[2025-08-04 01:31] LABS: CREATININE 1.1 mg/dL (0.5-1.3); GLOMERULAR FILTR. RATE CALC 81.0 mL/min (>90); GLUCOSE,RANDOM 153.0 mg/dL (70-105); SODIUM SERUM 139.0 mmol/L (136-145); UREA NITROGEN, BLOOD 12.0 mg/dL (7-18)
[2025-08-04 01:33] LABS: APPEARANCE,URINE CLEAR (CLEAR); GLUCOSE, URINE (UA) NEGATIVE (NEGATIVE); LEUKOCYTE ESTERASE ,URINE NEGATIVE Leu/uL (NEGATIVE); NITRATE,URINE NEGATIVE (NEGATIVE); OCCULT BLOOD,URINE NEGATIVE (NEGATIVE)
[2025-08-04 01:34] LABS: ADD UA MICROSCOPIC NO
[2025-08-04 01:42] LABS: AMPHET/METH SCREEN,URINE NEGATIVE (NEGATIVE); BARBITURATE SCREEN, URINE NEGATIVE (NEGATIVE); CANNABINOID SCREEN,URINE NEGATIVE (NEGATIVE); COCAINE SCREEN,URINE NEGATIVE (NEGATIVE)
--- NOTE | 2025-08-04 02:21 | ERN ---
ED Note History of Present Illness Stated Complaint: C/O ANXIETY WITH SOB Chief Complaint: Anxiety/Panic Attack Time Seen by : 00:51 Dictation: This is a 50-year-old male with known history of hypertension and anxiety presented to the emergency room with multiple somatic complaints. He stated that he started feeling severe acid regurgitation reflux and anxiety with shortness of breath. He normally takes Nexium for his gastroesophageal reflux. He stated that he had 2 large beers. He also takes hydroxyzine PRN for his anxiety Temperature 98.2 pulse 82 respirations 20 blood pressure 152/87 with a pulse oximetry of 96% on room air His chronic medical problems include anxiety and panic attacks and hypertension Allergies: Coded Allergies: No Known Drug Allergies (Unverified Allergy, Unknown, 10/06/20) Home Meds Active Scripts Clonazepam (Clonazepam) 0.5 Mg Tablet, 1 TAB PO [id number] PRN for anxiety for 7 Days, #14 TAB 0 Refills Prov:NATHAN LOERA MD 08/04/25 Albuterol Sulfate (Albuterol Sulfate) 2.5 Mg/0.5 Ml Vial.neb, 2.5 MG IH Q6H for wheezing/sob, #20 INH 0 Refills Prov:EPI YOUNGBLOOD 03/18/25 Methylprednisolone (Medrol) 4 Mg Tab.ds.pk, 4 MG PO AD for 6 Days, #1 PACK Day 1: Take 2 tablets before breakfast,1 tablet after lunch and supper, and 2 tablets at bedtime. Day 2: Take1 tablet before breakfast,1 tablet after lunch,1 tablet after supper, and 2 tablets at bedtime. Day 3: Take 1 tablet before breakfast, 1 tablet after lunch, 1 tablet after supper, and 1 tablet at bedtime. Day 4: Take 1 tablet before breakfast, 1 tablet after lunch, and 1 tablet at bedtime. Day 5: Take1 tablet before breakfast and 1 tablet at bedtime. Day 6: Take 1 tablet before breakfast. Prov:EPI YOUNGBLOOD 03/18/25 Famotidine (Pepcid) 20 Mg Tablet, 1 TAB PO BID PRN for DYSPEPSIA for 15 Days, #30 TAB 0 Refills Prov:ROD ROCHA MD 11/09/24 Losartan Potassium (Losartan Potassium) 50 Mg Tablet, 1 TAB PO DAILY for 15 Days, #15 TAB 0 Refills Prov:ROD ROCHA MD 11/09/24 Ibuprofen (Ibuprofen) 800 Mg Tablet, 800 MG PO Q6HPRN PRN for PAIN, #20 TAB 0 Refills Prov:RADHA ZAZUETA [facility] 12/08/23 Cyclobenzaprine HCl (Flexeril) 10 Mg Tab, 10 MG PO TIDP PRN for PAIN, #12 TAB 0 Refills Prov:CARLITARADHA UMANA [facility] 12/08/23 Past Medical History Past Medical History: Anxiety, Hypertension Surgical History: None Surgical History Other: LEFT HIP PSYCH History: anxiety Social History: ETOH RN Note Reviewed/Agreed w/PFSH: Yes Review of System Dictation Constitutional: Negative for fever,chills, and weight loss Eyes: Negative for injury, pain,redness, and discharge ENT: Negative for injury,pain or swelling Cardiovascular: Negative for chest pain, palpitations, and edema Respiratory: Negative for shortness of breath, cough, and wheezing, Abdomen/GI: Negative for abdominal pain, nausea, vomiting, diarrhea, and con stipation positive for severe reflux Back: Negative for injury and pain : Negative for injury, bleeding and discharge MS/Extremity: Negative for injury and deformity Skin: Negative for rash, and discoloration Neuro: Negative for headache, weakness, numbness, tingling, and seizure Psych: Negative for suicide ideation, homicidal ideation, and hallucinations positive for severe anxiety Initial Vital Sign VS Vital Signs Date Time Temp Pulse Resp B/P (MAP) Pulse Ox O2 Delivery O2 Flow Rate FiO2 08/04/25 00:48 98.2 82 20 152/87 96 Room Air 08/04/25 01:00 0 21 Physical Exam Dictation General: awake, alert, NAD morbidly obese, generally anxious Head/Face: Normocephalic, atraumatic Eyes: PERRL, EOMI, vision at baseline ENT: oral cavity clear, TMs clear, no signs of infection Neck: Trachea midline, supple, no nuchal rigidity Cardiovascular: RRR, normal S1/S2, No MRGs, no JVD Respiratory: CTAB, no respiratory distress, No rales or wheezes Abdomen: Soft, non-tender, non-distended, normal bowel sounds, no guarding or rebound. Skin: Warm, dry, normal turgor, no rash MS/Extremity: Pulses equal, no cyanosis, neurovascular intact, FROM Neuro: COAx4, GCS 15, strength 5/5, CN 2-12 intact, normal cerebellar exam, normal gait, Psych: Normal behavior, mood, and affect normal Extremities-trace edema without any palpable cords, Homans sign is negative Results (Laboratory/Radiology) Laboratory/Radiology Laboratory Tests Test 08/04/25 01:09 White Blood Count 9.9 K/uL (4.8-10.8) Red Blood Count 4.94 MIL/uL (4.50-6.20) Hemoglobin 15.4 g/dL (14.0-18.0) Hematocrit 43.9 % (42-54) Mean Corpuscular Volume 88.9 fL (79-99) Mean Corpuscular Hemoglobin 31.2 pg (27.0-33.0) Mean Corpuscular Hemoglobin Concent 35.1 g/dL (32.0-36.0) Red Cell Distribution Width 12.2 % (11.0-15.5) Platelet Count 213 K/uL (130-400) Mean Platelet Volume 11.6 fL (7.5-10.5) H Immature Granulocyte % (Auto) 0.4 % (0-1) Neutrophils (%) (Auto) 47.6 % (40.0-77.0) Lymphocytes (%) (Auto) 41.4 % (21.0-51.0) Monocytes (%) (Auto) 9.1 % (3.0-13.0) Eosinophils (%) (Auto) 0.7 % (0.0-8.0) Basophils (%) (Auto) 0.8 % (0.0-5.0) Neutrophils # (Auto) 4.7 K/uL (1.8-7.7) Lymphocytes # (Auto) 4.1 K/uL (1.0-4.8) Monocytes # (Auto) 0.9 K/uL (0.1-1.0) Eosinophils # (Auto) 0.07 K/uL (0.00-0.70) Basophils # (Auto) 0.08 K/uL (0.00-0.20) Absolute Immature Granulocyte (auto 0.04 K/uL (0-1) Nucleated Red Blood Cells 0.0 % (0.0-0.19) Urine Color LIGHT-YELLOW (YELLOW) Urine Appearance CLEAR (CLEAR) Urine pH 6.5 (5.0-8.0) Urine Specific [address] 1.018 (1.001-1.031) Urine Protein NEGATIVE mg/dL (NEGATIVE) Urine Glucose (UA) NEGATIVE mg/dL (NEGATIVE) Urine Ketones NEGATIVE mg/dL (NEGATIVE) Urine Occult Blood NEGATIVE (NEGATIVE) Urine Nitrate NEGATIVE (NEGATIVE) Urine Bilirubin NEGATIVE mg/dL (NEGATIVE) Urine Urobilinogen 0.2 mg/dL (0.2-1.0) Urine Leukocyte Esterase NEGATIVE Amirah/uL Sodium Level 139 mmol/L (136-145) Potassium Level 3.5 mmol/L (3.5-5.1) Chloride Level 101 mmol/L (101-111) Carbon Dioxide Level 32 mmol/L (21-32) Blood Urea Nitrogen 12 mg/dL (7-18) Creatinine 1.1 mg/dL (0.5-1.3) Glomerular Filtration Rate Calc 81 mL/min (>90) Random Glucose 153 mg/dL (70-105) H Total Calcium 8.5 mg/dL (8.5-10.1) Urine Opiates Screen NEGATIVE (NEGATIVE) Urine Barbiturates Screen NEGATIVE (NEGATIVE) Urine Phencyclidine Screen NEGATIVE (NEGATIVE) Urine Amphetamines Screen NEGATIVE (NEGATIVE) Urine Benzodiazepines Screen NEGATIVE (NEGATIVE) Urine Cocaine Screen NEGATIVE (NEGATIVE) Urine Marijuana (THC) Screen NEGATIVE (NEGATIVE) Labs Reviewed?: Yes ED Course ED Course Orders Procedure Category Date Status Time Cbc With Differential LAB 08/04/25 Complete 00:58 Basic Metabolic Panel LAB 08/04/25 Complete 00:58 Urinalysis Profile LAB 08/04/25 Complete 00:58 Drug Screen Urine LAB 08/04/25 Complete 00:58 Ondansetron 4mg Inj PHA 08/04/25 Complete (Zofran 4mg Inj) 01:30 Famotidine 20mg Tab PHA 08/04/25 Complete (Pepcid 20mg Tab) 01:30 Clonazepam 1mg Tab PHA 08/04/25 Complete (Klonopin 1mg Tab) 02:00 Current Medications Medications (Trade) Dose Ordered Sig/Conrad Route PRN Reason Start Time Stop Time Status Last Admin Dose Admin Clonazepam (KLONopin 1MG TAB) 1 mg ONCE ONCE PO 08/04/25 02:00 08/04/25 02:02 DC 08/04/25 02:12 Famotidine (Pepcid 20mg Tab) 20 mg ONCE ONCE PO 08/04/25 01:30 08/04/25 01:31 DC 08/04/25 01:25 Ondansetron HCl (zoFRAN 4MG INJ) 4 mg ONCE ONCE IVP 08/04/25 01:30 08/04/25 01:31 DC 08/04/25 01:25 Vital Signs Date Time Temp Pulse Resp B/P (MAP) Pulse Ox O2 Delivery O2 Flow Rate FiO2 08/04/25 02:28 72 15 151/92 97 Room Air* 0 21 08/04/25 01:46 78 13 152/88 96 Room Air* 0 21 08/04/25 01:00 98.2 82 14 172/87 99 Room Air* 0 21 08/04/25 00:48 98.2 82 20 152/87 96 Room Air We will perform diagnostic labs, advanced imaging and administer medications according to the patient's complaint. Once the results are available, will review and personally interpreted the labs to rule out any acute life- threatening emergency the trach require immediate intervention and treatment. I will then re-evaluate the patient after treatment and diagnostic exams have return to determine whether the patient requires any further testing, can safely be discharged home or need further admission to hospital for additional treatment and evaluation. Patient will be discharged to home to follow up with his primary care physician and also discuss anxiety management. Medical Decision Making MDM Differential diagnosis: Esophagitis, gastritis, GERD, pancreatitis, dyspepsia, anxiety We will perform diagnostic labs, advanced imaging and administer medications according to the patient's complaint. Once the results are available, will review and personally interpreted the labs to rule out any acute life- threatening emergency the trach require immediate intervention and treatment. I will then re-evaluate the patient after treatment and diagnostic exams have return to determine whether the patient requires any further testing, can safely be discharged home or need further admission to hospital for additional treatment and evaluation. 1:56 a.m.-CBC is with a normal limits BNP 7 is with a normal limits except for BUN and creatinine of 12 and 1.1. Urinalysis is unremarkable. UDS is negative. 2:00 a.m. patient continues to have severe anxiety and panic. We will give a dose of clonazepam. 3:05 a.m. patient admits to feeling better. Rationale: Tests considered and ordered secondary to shared decision making include: Previous outside records reviewed: Old ER visits. Risk of complication and/or morbidity or mortality of patient management: None Medications-Per medication reconciliation Need for hospitalization: Patient does not meet criteria for hospitalization. Need for emergency major/minor surgery: No There are no social concerns with this patient. Prescription drug management Prescriptions will include symptomatic care Patient's prior external medical records from other ER visits were reviewed by me as indicated. Prior testing and results from previous visits were reviewed. Prior tests were taken into account with medical decision making and resource utilization, independent historian/historians were used to obtain complete medical history. I independently interpreted the test that were performed, results were reviewed by me and considered findings on radiology if ordered. Medical management and examination interpretation discussions were had by me with other qualified healthcare professionals as indicated for the patient's care. Problem List Problem List: (1) Anxiety (2) Gastroesophageal reflux disease (3) Alcohol abuse DX & DISP Disposition: Discharge Departure Impression: Primary Impression: Gastroesophageal reflux disease Additional Impressions: Anxiety, Alcohol abuse Condition: Stable Scripts Clonazepam (Clonazepam) 0.5 Mg Tablet 1 TAB PO [id number] PRN for anxiety for 7 Days, #14 TAB 0 Refills Prov: NATHAN LOERA MD 08/04/25 Additional Instructions: Patient and the caregiver have been informed of all the diagnostic tests and the imaging conducted during the today's visit to the emergency room and has verbalized understanding of the results I have personally reviewed and interpreted all diagnostic exams performed here in the ER today as well as the vital signs documented by the nursing staff. The patient is now being discharged to home and should follow up with the primary care physician or the specialist as directed by the ER staff. Follow-up with primary care provider in 1 to 2 days. Take medications as directed here in the emergency room. Okay to continue home medications unless otherwise discussed during your visit in the emergency room today. Return to your nearest emergency room if symptoms worsen or if there is no improvement. Call 911 if you need immediate assistance. Take Tylenol or Motrin [id number] as needed and if no contraindications are present. Increase oral hydration. A wound culture or urine culture was ordered here in the emergency room department please follow-up with primary care provider and advise them to get repeat ports from our facility. If you had any Ricardo wrap/splints that were applied here, please do not remove them until you see your primary care or specialty. Extensive counseling done on -- sleep hygiene discussed avoidance of benzodiazepines and other sleep aids that would suppress respirations. The importance of compliance with PAP therapy and benefits of improved sleep consolidation quality of sleep, reducing the risks of stroke cardiac disease and comorbidities. Negative consequences also discussed. -- Weight loss diet and exercise stressed and education done. --Smoking cessation and toxic effects of tobacco and complications associated with worsening lung disease, incidents of lung cancer and other cancers cardiac arrest and . --Stop alcohol and resources for withdrawal and abstinence with addiction medicine offered. --. Regular followups. --he was instructed to continue his Nexium for his gastroesophageal reflux disease Referrals: MERLYN TANNER DO (PCP) NATHAN LOERA MD Aug 04, 2025 02:21
[2025-08-04] MEDS ORDERED: CLON0.5T4 PO (03:02)
[2025-08-04 03:26] VITALS: BP 152/90; PULSE 76; RESP 18; TEMP 98.3; O2SAT 96
== END 2025-08-04 03:27 | disposition home or self-care (01) ==
LOC: EDH 00:46
DX: K21.9 Gastro-esophageal reflux disease without esophagitis (principal); F41.9 Anxiety disorder, unspecified; I10 Essential (primary) hypertension; F10.10 Alcohol abuse, uncomplicated; E66.01 Morbid (severe) obesity due to excess calories; Z79.899 Other long term (current) drug therapy; Z98.890 Other specified postprocedural states; Z68.38 Body mass index [BMI] 38.0-38.9, adult
CPT/HCPCS: 99285; 96374; 80048; 80305; 85025; 36415; 81003; J2405